=== PATIENT | male | born 1955 | race Caucasian/White ===

== ENCOUNTER 2022-07-02 12:07 | Outpatient (CLI) | payer MEDICARE, MEDICAID, SELFPAY ==
--- NOTE | 2022-07-02 06:00 | DI.RAD_ITS ---
Exam(s) XR PAIN CLINIC LUMBAR SP 2V EXAM: XR PAIN CLINIC LUMBAR SP 2V CLINICAL HISTORY: Dx: Lumbar Radiculopathy TECHNIQUE: 2D and realtime digital imaging was performed. CONTRAST MATERIAL: Refer to procedure report. COMPARISON: No exams were available for comparison FINDINGS: Fluoroscopy was provided for Dr. Roy during the performance of a lumbar epidural steroid injection. Please refer to the procedure report for complete details. Ka,r=12.1 mGy IMPRESSION:
[2022-07-02 12:25] VITALS: BP 121/68; PULSE 78; RESP 20; TEMP 36.8; O2SAT 95
--- NOTE | 2022-07-02 12:52 | PDOC.PAIN ---
Date of service: 07/02/22 Time of Service: 13:19 Pain Clinic Procedure Note Procedure Note Procedure Note: Lumbar Epidural Steroid Injection Procedure Note COMMENTS:He was previously evaluated by [facility]. They directly referred him here for this procedure. He will contact them in a few weeks to let them know how he is doing. He has low back pain and pain radiating mostly down his right leg. He also has positive findings on his lumbar spine MRI. Dx: Lumbosacral radiculopathy Pre-procedure pain VAS: 3/10 Crow Turner has been referred to the [facility] for lumbar epidural steroid injection. The patient was greeted by the nurse who verified patients name and . Patient was then taken to the fluoroscopy suite. The patient was interviewed and the medial record reviewed. There were no medical, pharmacologic, radiographic, or other structural contraindications to attempting fluoroscopically guided lumbar epidural steroid injection. Risks and expected side effects as well as potential benefits of the procedure were reviewed and voiced concerns expressed. The patient consent form was signed and witnessed. Standard patient time-out procedure was performed. The patient was placed in the prone position on the fluoroscopy table and automated blood pressure cuff and pulse oximeter applied. The skin entry point for entering/approaching the epidural space at L3-L4 and marked. Following thorough chlorhexadine preparation of the skin and draping and 1% lidocaine infiltration of the skin entry point and subcutaneous tissues, a 18 gauge Touhy needle was placed under fluoroscopic guidance and with loss of resistance technique into the epidural space. Needle tip placement and depth were aided and confirmed by fluoroscopy. There was no paresthesia or return of blood or CSF through the needle. 1 cc's of Omnipaque 240 was injected with clear epidural spread confirmed with fluoroscopy. 80mg depomedrol was injected. There was not any unusual discomfort expressed by Crow Turner. Patient's vital signs were stable throughout the procedure and were as recorded in nursing records. Follow up plans and appointments were discussed with patient. Post procedure instruction was given as documented in nursing records and having met discharge criteria and was discharged from the [facility]. COMMENTS: If this procedure is helpful, it can be completed up to 3 times per 12 months. Post-procedure pain VAS was 0/10. He will contact [facility] in 3-6 weeks to let them know how he is doing. Bob Roy DO, MPH [facility]-Pain Management [facility] for [facility]
[2022-07-02] MEDS: methylPREDNISolone ACETATE 80 MG/ML VIAL IJ (13:19)
[2022-07-02] MEDS: Omnipaque 240 MG/ML 50 ML BTL IJ (13:19)
[2022-07-02 13:20] VITALS: BP 140/78; PULSE 65; RESP 20; O2SAT 94
== END 2022-07-02 12:08 | disposition home or self-care (01) ==
PROVIDERS: PCP Physician Assistant; Visit Provider Preventive Medicine Occupational Medicine
DX: M54.17 Radiculopathy, lumbosacral region (principal); M54.50 Low back pain, unspecified
CPT/HCPCS: 62323; 72100; J1040; Q9967

== ENCOUNTER 2024-04-20 10:58 | Outpatient (CLI) | payer MEDICARE, SELFPAY ==
[2024-04-20 11:26] LABS: Estimated GFR 81.47 (mL/min/1.73m2)
== END 2024-04-20 10:59 | disposition home or self-care (01) ==
LOC: LBO 10:59
PROVIDERS: PCP Physician Assistant; Visit Provider Otolaryngology
DX: R05.3 Chronic cough (principal); R22.1 Localized swelling, mass and lump, neck
CPT/HCPCS: 36415; 82565

== ENCOUNTER 2024-05-01 01:42 | Outpatient (CLI) | payer MEDICARE, SELFPAY ==
--- NOTE | 2024-05-01 07:30 | DI.CT_ITS ---
Exam(s) CT NECK W EXAM: CT NECK W CLINICAL HISTORY: Posterior pharyngeal fullness, C4/5 level,DYSPHAGIA,CHRONIC COUGH, NECK MAS. TECHNIQUE: Imaging Protocol: Axial computed tomography images with coronal and sagittal reformatted images were created and reviewed CONTRAST MATERIAL: Intravenous: Omnipaque 350 Contrast volume:100 ml contrast COMPARISON: No exams were available for comparison FINDINGS: Parotids: Normal. Submandibular glands: Normal. Thyroid gland: Normal. Lymph nodes: There are scattered lymph nodes seen along the level one to level three all measuring le ss than 8 mm in short axis diameter which are physiologic in nature. Carotids arteries: No significant stenosis or dissection. Vertebral arteries: No significant stenosis or dissection. Soft tissues: The floor the mouth is unremarkable. The adenoids are unremarkable. There is are a f ew calcifications in the right-sided tonsil. No mass is visible. No visible inflammation. Epiglottis: There is a 6 millimeter well-marginated area of low density in the left vallecula. Addit ional area of thickening of the right-sided the FO glottis. Lungs: Images through both lung apices are unremarkable. Bones: Severe degenerative changes of the cervical spine. There are large osteophytes projecting ant eriorly from the C4 through C7 vertebral bodies. The osteophytes projecting anteriorly into the post erior pharyngeal tissues. Findings are consistent with DISH. The osteophytes measure approximately 15 millimeters smaller osteophytes are seen at C3 and T1. Facet degenerative changes are also presen t which are greater on the right side at C 2 3 and C3-4. There is narrowing of the AP dimension of t he central canal from C3-4 through C6-7. Visualized portions of the brain and orbits: Unremarkable. Sinuses and mastoids: Mucous retention in maxillary sinuses, left greater than right. Scattered ethm oid sinus opacification. IMPRESSION: Prominent osteophytes projecting anteriorly in the cervical spine are projecting into the posterior p haryngeal tissues. Areas of density/asymmetry in the vallecula and epiglottis. Small masses not excluded. RADIATION DOSE DELIVERED: 495.26mGy.cm Total DLP DATA REPOSITORY: All CT scans at this facility are submitted to the National Radiology Data Registry (NRDR) Dose Index Registry (DIR) with the [employer] ([employer]). RADIATION OPTIMIZATION: All CT scans at this facility use at least one of these dose optimization te chniques: automated exposure control; mA and/or kV adjustment per patient size (includes targeted exa ms where dose is matched to clinical indication); or iterative reconstruction.
[2024-05-01] MEDS: Normal Saline - Diluent 50 ML VIAL IJ (10:49)
[2024-05-01] MEDS: Omnipaque 350 MG/ML 100 ML BTL IJ (10:49)
== END 2024-05-01 02:02 ==
PROVIDERS: PCP Physician Assistant; Visit Provider Otolaryngology
DX: R13.14 Dysphagia, pharyngoesophageal phase (principal); R22.1 Localized swelling, mass and lump, neck; R05.3 Chronic cough
CPT/HCPCS: 70491; J3490